=== PATIENT | male | born 1970 | race Hispanic/Latino ===

== ENCOUNTER 2018-06-29 19:35 | Emergency (ER) | payer OTHER ==
[2018-06-29] MEDS ORDERED: DIPHENHYDRAMINE HCL 25 MG CAPSULE ONE (20:12)
== END 2018-06-29 20:19 | disposition home or self-care (01) ==
LOC: EDH 19:35 → EEVIPCON 19:35 → EDH 20:19
DX: L98.9 Disorder of the skin and subcutaneous tissue, unspecified (principal); Z72.0 Tobacco use; W57.XXXA Bitten or stung by nonvenomous insect and other nonvenomous arthropods, initial encounter; Y93.89 Activity, other specified; Y92.89 Other specified places as the place of occurrence of the external cause; Y99.8 Other external cause status
CPT/HCPCS: 99283; Q0163

== ENCOUNTER 2021-10-11 18:19 | Emergency (ER) | payer OTHER ==
[~2021-10-11] VITALS: Ht 167.6 cm; Wt 104.3 kg
[2021-10-11 18:20] VITALS: BP 120/60
[2021-10-11] MEDS ORDERED: DEXAMETHASONE SOD PHOSPHATE 4 MG/ML 1ML VIAL IM ONE (19:00)
[2021-10-11] MEDS ORDERED: APAP/CODEINE 120/12MG 5ML PO ONE (19:00)
[2021-10-11] MEDS ORDERED: BENZ-39 PO (19:40)
== END 2021-10-11 19:53 | disposition home or self-care (01) ==
LOC: EDH 18:19
DX: R05.9 Cough, unspecified (principal); B34.9 Viral infection, unspecified; Z20.822 Contact with and (suspected) exposure to COVID-19; Z68.37 Body mass index [BMI] 37.0-37.9, adult
CPT/HCPCS: 71045; 87635; 87804 ×2; 87880; 96372; 99284; C9803; J1100